=== PATIENT | male | born 1970 ===

== ENCOUNTER 2023-05-06 06:28 | Day surgery (SDC) | payer OTHER ==
[~2023-05-06] VITALS: Ht 170.2 cm; Wt 90.7 kg
[~2023-05-06 06:28] MED LIST: ATORVASTATIN CA40 MG PO; CALCIUM PO; FOSAMAX70 MG PO; GLIMEPIRIDE4 MG PO; GLUMETZA500 MG PO; INSULIN; LYRICA PO; VASOTEC2.5 MG PO
[2023-05-06] MEDS ORDERED: PERCOCET 5-3251 EACH PO (10:28)
== END 2023-05-06 15:05 | disposition home or self-care (01) ==
LOC: CIR.AMB 06:28
PROVIDERS: ATTEND Surgery
DX: N52.01 Erectile dysfunction due to arterial insufficiency (principal); I10 Essential (primary) hypertension; E78.5 Hyperlipidemia, unspecified; Z20.822 Contact with and (suspected) exposure to COVID-19; E11.9 Type 2 diabetes mellitus without complications
CPT/HCPCS: 54405; C1813